=== PATIENT | female | born 1970 | race Caucasian/White ===

== ENCOUNTER → 2017-12-07 | Outpatient (CLI) | payer BC ==
--- NOTE | 2017-12-07 15:11 | P.STRESS ---
- Stress Test Note Stress Test Results/Findings: Exam Performed: stress test Exam Date: 12/07/17 Reason for Exam: ABNORMAL EKG Height: 5 ft 6 in Weight: 111.584 kg Protocol: JAILENE Stage: 3 Duration of Exercise: 7:00 Resting Heart Rate: 89 Resting Blood Pressure: 123/65 Maximum Achieved Heart Rate: 169 Maximum Achieved Blood Pressure: 159/50 85% PMHR: 148 100% PMHR: 174 METS: 8.5 Technologist Comment: Stress Test Results/Findings: This patient is being evaluated for symptoms of chest pain and abnormal EKG. Baseline EKG showed sinus rhythm with normal MD interval and QRS duration with the incomplete) branch block pattern. Blood pressure at rest is 123/65 with pulse rate of 89. Patient walked on the Jailene protocol for 7 minutes achieving a maximum rate of 169 with a blood pressure 115/50. EKGs taken during and after exercise did not reveal any changes to suggest ischemia. Final impression: #1. Negative stress test #2. Patient did not express any chest pain #3. About average exercise capacity #4. No arrhythmias detected.
--- NOTE | 2017-12-07 15:33 | ECHOF ---
Referral Reason:R07.89 Other Chest pain MEASUREMENTS -------- HEIGHT: 165.1 cm WEIGHT: 109.8 kg BP: RVIDd: 2.7 cm (< 3.3) IVSd: 0.9 cm (0.6 - 1.1) LVIDd: 4.5 cm (3.9 - 5.3) LVPWd: 1.1 cm (0.6 - 1.1) IVSs: 1.3 cm LVIDs: 3.2 cm LVPWs: 1.3 cm LA Diam: 3.5 cm (2.7 - 3.8) LAESV Index (A-L): 22.40 ml/m Ao Diam: 2.8 cm (2.0 - 3.7) AV Cusp: 2.2 cm (1.5 - 2.6) LA Diam: 3.6 cm (2.7 - 3.8) MV EXCURSION: 18.395 mm (> 18.000) MV EF SLOPE: 62 mm/s (70 - 150) EPSS: 0.7 cm MV E Ascencion: 0.48 m/s MV DecT: 186 ms MV A Ascencion: 0.62 m/s MV E/A Ratio: 0.79 RAP: 5.00 mmHg RVSP: 22.12 mmHg FINDINGS -------- Sinus rhythm. This was a technically adequate study. LV size, wall thickness and systolic function are normal, with an EF greater than 55%. The left taylor tricular size is normal. Left ventricular wall thickness is normal. The right ventricle is normal in size. The left atrial size is normal. The right atrial size is normal. The aortic valve is trileaflet, and appears structurally normal. No aortic stenosis or regurgitation. Mild mitral annular calcification present. Mild mitral regurgitation is present. Mild tricuspid regurgitation present. There is no evidence of pulmonary hypertension. The right v entricular systolic pressure, as measured by Doppler, is 22.12mmHg. There is no pulmonic regurgitation present. The aortic root size is normal. There is no pericardial effusion. CONCLUSIONS -------- 1. LV size, wall thickness and systolic function are normal, with an EF greater than 55%. 2. The left ventricular size is normal. 3. Left ventricular wall thickness is normal. 4. The right ventricle is normal in size. 5. The left atrial size is normal. 6. The right atrial size is normal. 7. The aortic valve is trileaflet, and appears structurally normal. No aortic stenosis or regurgitati on. 8. Mild mitral annular calcification present. 9. Mild mitral regurgitation is present. 10. Mild tricuspid regurgitation present. 11. There is no evidence of pulmonary hypertension. 12. The right ventricular systolic pressure, as measured by Doppler, is 22.12mmHg. 13. There is no pulmonic regurgitation present. 14. The aortic root size is normal. 15. There is no pericardial effusion. WARP PLACER: Sruthi Blake RDCS
--- NOTE | 2017-12-08 16:35 | EST ---
Stress Test Results/Findings: Exam Performed: stress test Exam Date: 12/07/17 Reason for Exam: ABNORMAL EKG Height: 5 ft 6 in Weight: 111.584 kg Protocol: JAILENE Stage: 3 Duration of Exercise: 7:00 Resting Heart Rate: 89 Resting Blood Pressure: 123/65 Maximum Achieved Heart Rate: 169 Maximum Achieved Blood Pressure: 159/50 85% PMHR: 148 100% PMHR: 174 METS: 8.5 Technologist Comment: Stress Test Results/Findings: This patient is being evaluated for symptoms of chest pain and abnormal EKG. Baseline EKG showed sinus rhythm with normal OR interval and QRS duration with the incomplete) branch block pattern. Blood pressure at rest is 123/65 with pulse rate of 89. Patient walked on the Jailene protocol for 7 minutes achieving a maximum rate of 169 with a blood pressure 115/50. EKGs taken during and after exercise did not reveal any changes to suggest ischemia. Final impression: #1. Negative stress test #2. Patient did not express any chest pain #3. About average exercise capacity #4. No arrhythmias detected. MTDD
== END ==
LOC: RADNMMAIN 08:53
PROVIDERS: ATTEND Internal Medicine
DX: I08.1 Rheumatic disorders of both mitral and tricuspid valves (principal)
CPT/HCPCS: 93017; 93306

== ENCOUNTER 2020-08-26 20:38 | Emergency (ER) | payer BC, MEDICAID ==
--- NOTE | 2020-08-26 22:01 | XR ---
EXAMINATION TYPE: XR ankle complete RT DATE OF EXAM: 08/26/2020 COMPARISON: NONE HISTORY: Ankle pain TECHNIQUE: 3 views FINDINGS: There is nondisplaced oblique fracture distal shaft of the fibula at the ankle joint. There is no dislocation. There is soft tissue swelling around the ankle. Ankle mortise is anatomic. IMPRESSION: Acute fracture distal fibula without significant displacement.
--- NOTE | 2020-08-26 22:26 | ED ---
Lower Extremity Injury HPI - General Chief Complaint: Extremity Injury, Lower Stated Complaint: Ankle injury,Fall Time Seen by Provider: 08/26/20 21:26 Source: patient Mode of arrival: ambulatory - Related Data Allergies Allergy/AdvReac Type Severity Reaction Status Date / Time No Known Allergies Allergy Verified 08/26/20 21:03 Review of Systems ROS Statement: Those systems with pertinent positive or pertinent negative responses have been documented in the HPI. ROS Other: All systems not noted in ROS Statement are negative. Past Medical History Past Medical History: No Reported History History of Any Multi-Drug Resistant Organisms: None Reported Additional Past Surgical History / Comment(s): cyst removed on gabriella wrist. c- section Smoking Status: Former smoker Past Alcohol Use History: None Reported Past Drug Use History: None Reported Course Vital Signs 08/26/20 21:04 Temperature 98.7 F Pulse Rate 87 Respiratory 20 Rate O2 Sat by Pulse 99 Oximetry Disposition Clinical Impression: Ankle fracture, right, Fall Disposition: HOME SELF-CARE Condition: Good Instructions (If sedation given, give patient instructions): Ankle Fracture (E D) Is patient prescribed a controlled substance at d/c from ED?: No Referrals: Yoselin Yu MD [Primary Care Provider] - 1-2 days
[2020-08-26 22:34] VITALS: BP 135/82; PULSE 89; RESP 16; TEMP 97.5
== END 2020-08-26 22:32 | disposition home or self-care (01) ==
LOC: EC 20:38
DX: S82.434A Nondisplaced oblique fracture of shaft of right fibula, initial encounter for closed fracture (principal); X58.XXXA Exposure to other specified factors, initial encounter; Z87.891 Personal history of nicotine dependence
CPT/HCPCS: 99283

== ENCOUNTER → 2020-09-16 | Outpatient (CLI) | payer MEDICAID ==
[2020-09-16 09:20] LABS: Basophils % (A) 1 %; Eosinophils # (A) 0.2 k/uL (0-0.7); Eosinophils % (A) 4 %; HCT 39.2 % (34.0-46.0); HGB 12.8 gm/dL (11.4-16.0); Lymphocytes # (A) 1.8 k/uL (1.0-4.8); Lymphocytes % (A) 28 %; MCH 28.6 pg (25.0-35.0); MCHC 32.7 g/dL (31.0-37.0); MCV 87.5 fL (80.0-100.0); Mean Platelet Volume 7.7; Monocytes # (A) 0.4 k/uL (0-1.0); Monocytes % (A) 6 %; Neutrophils # (A) 3.8 k/uL (1.3-7.7); Neutrophils % (A) 60 %; Platelet Count 315 k/uL (150-450); RBC 4.48 m/uL (3.80-5.40); RDW 13.2 % (11.5-15.5); WBC 6.4 k/uL (3.8-10.6)
[2020-09-16 09:43] LABS: African American GFR (CKD) >90 (>60 ml/min/1.73 sqM); Anion Gap 9 mmol/L; Blood Urea Nitrogen 14 mg/dL (7-17); Calcium 9.4 mg/dL (8.4-10.2); Carbon Dioxide 27 mmol/L (22-30); Chloride 105 mmol/L (98-107); Glucose 103 mg/dL (74-99); Non-African American GFR(CKD) 82 (>60 ml/min/1.73 sqM); Potassium 4.4 mmol/L (3.5-5.1); Sodium 141 mmol/L (137-145)
== END | disposition home or self-care (01) ==
LOC: LABPAT 08:38
PROVIDERS: ATTEND Orthopaedic Surgery
DX: Z01.818 Encounter for other preprocedural examination (principal); S82.61XD Displaced fracture of lateral malleolus of right fibula, subsequent encounter for closed fracture with routine healing; X58.XXXD Exposure to other specified factors, subsequent encounter
CPT/HCPCS: 36415; 80048; 85025; 93005

== ENCOUNTER → 2020-09-19 | Day surgery (SDC) | payer MEDICAID | END | disposition home or self-care (01) | CPT/HCPCS: 64445; 76942; 73610; 27792; C1713; J2250; J1100; J0690; J2405; J2001; J3010; J2795; J0330; J2704 ==

== ENCOUNTER → 2023-04-15 | Outpatient (CLI) | payer BC ==
--- NOTE | 2023-04-18 19:35 | MM ---
Reason for Exam: Screening (asymptomatic). Last mammogram was performed 7 year(s) and 3 month(s) ago. Patient History: Menarche at age 14. First Full-Term at age 25. Hormonal Contraceptives for 7 years from age 36 until age 43. Last menstrual period: 04/07/2023 Risk Values: Kelsie 5 year model risk: 0.9%. NCI Lifetime model risk: 7.9%. Prior Study Comparison: 12/31/2015 Bilateral Screening Mammogram, [facility]. Tissue Density: The breast tissue is heterogeneously dense. This may lower the sensitivity of mammography. Findings: Analyzed By CAD. Possible subtle distortion versus superimposition shadow outer aspect of the left cc view. Further evaluation is recommended. Otherwise, no significant change. Overall Assessment: Incomplete: need additional imaging evaluation, BI-RAD 0 Management: Special View Mammogram of the left breast. Diagnostic Breast Ultrasound of the left breast. Additional views to include spot 3-D CC, 3-D CC rolled, and 3-D ML views. Targeted left breast ultrasound if any persisting abnormality. [facility] will attempt to contact patient to return for supplemental views and ultrasound if indicated. Electronically signed and approved by: Christoph Williamson M.D. Radiologist
== END | disposition home or self-care (01) ==
LOC: RADMAMWWP 15:48
PROVIDERS: ATTEND Internal Medicine
DX: Z12.31 Encounter for screening mammogram for malignant neoplasm of breast (principal)
CPT/HCPCS: 77063; 77067

== ENCOUNTER → 2023-04-21 | Outpatient (CLI) | payer BC ==
--- NOTE | 2023-04-21 08:28 | MM ---
Reason for Exam: Additional evaluation requested from abnormal screening. Last screening mammogram was performed less than 1 month ago. Patient History: Menarche at age 14. First Full-Term at age 25. Hormonal Contraceptives for 7 years from age 36 until age 43. Risk Values: Kelsie 5 year model risk: 0.9%. NCI Lifetime model risk: 7.9%. Prior Study Comparison: 12/31/2015 Bilateral Screening Mammogram, [facility]. 04/15/2023 Bilateral MG 3D screening mammo w/cad, [facility]. Tissue Density: Left: The breast tissue is heterogeneously dense. This may lower the sensitivity of mammography. Findings: Analyzed By CAD. The questioned area of distortion upper outer left breast becomes less defined and appears to disperse on additional views. Precautionary six-month follow-up recommended given the appearance on the screening exam. Overall Assessment: Probably benign, BI-RAD 3 Management: Diagnostic Mammogram of the left breast in 6 months. . Results were given to the patient verbally at the time of exam. Patient should continue monthly self-breast exams. A clinical breast exam by your physician is recommended on an annual basis. This exam should not preclude additional follow-up of suspicious palpable abnormalities. Note on Kelsie scores and lifetime risk: 1. A Kelsie score greater than 3% is considered moderate risk. If this is the case, consider specialist referral to assess eligibility for a risk reducing agent. 2. If overall lifetime risk for the development of breast cancer is 20% or higher, the patient may qualify for future screening with alternating mammogram and breast MRI. Electronically signed and approved by: Christoph Williamson M.D. Radiologist
== END | disposition home or self-care (01) ==
LOC: RADMAMWWP 08:05
PROVIDERS: ATTEND Internal Medicine
DX: R92.332 Mammographic heterogeneous density, left breast (principal)
CPT/HCPCS: 77061; 77065

== ENCOUNTER 2023-04-29 09:40 | Emergency (ER) | payer BC ==
[2023-04-29 10:03] VITALS: BP 134/61; PULSE 74; RESP 18; TEMP 97.7
--- NOTE | 2023-04-29 10:03 | ED ---
General Adult HPI - General Chief complaint: Recheck/Abnormal Lab/Rx Stated complaint: Post Op Comp, L Wrist Time Seen by Provider: 04/29/23 09:45 Source: patient, RN notes reviewed, old records reviewed Mode of arrival: ambulatory Limitations: no limitations - History of Present Illness Initial comments: This is a 52-year-old female who presents to the emergency department complaining her incision from her wrist surgery on Tuesday opened up and it was bleeding a little this morning. Patient states the bleeding is stopped but she was unable to get a hold of the orthopedic surgeon so she came to the emergency department. Patient denies any fevers chills patient [place] any other complaints. - Related Data Home Medications Medication Instructions Recorded Confirmed Aspirin [Adult Low Dose Aspirin EC] 81 mg PO DAILY 09/17/20 09/17/20 Multivit with Calcium,Iron,Min 1 each PO DAILY 09/17/20 09/17/20 [Women's Multivitamin] Vitamin D3 (Unknown Dose) 1 dose PO DAILY 09/17/20 09/17/20 Previous Rx's Medication Instructions Recorded HYDROcodone/APAP 7.5-325MG [[place] 1 each PO Q6HR PRN #21 tab 09/19/20 7.5] cefaDROXiL [Duricef] 1 gm PO DAILY #5 tablet 09/19/20 Cephalexin [Keflex] 500 mg PO Q6HR #28 cap 04/29/23 Allergies Allergy/AdvReac Type Severity Reaction Status Date / Time No Known Allergies Allergy Verified 04/29/23 09:44 Review of Systems ROS Statement: Those systems with pertinent positive or pertinent negative responses have been documented in the HPI. ROS Other: All systems not noted in ROS Statement are negative. Past Medical History Past Medical History: No Reported History History of Any Multi-Drug Resistant Organisms: None Reported Additional Past Surgical History / Comment(s): cyst removed on gabriella wrist. c- section Past Psychological History: ADD/ADHD Smoking Status: Former smoker Past Alcohol Use History: None Reported Past Drug Use History: None Reported General Exam - General Exam Comments Initial Comments: GENERAL Patient is well-developed and well-nourished. Patient is in mild distress. EYES Patient's pupils are equal and round. Extraocular motion is intact SKIN Unremarkable NEURO The patient is alert and oriented -3 PYSCH Patient has normal interpersonal interactions. MUSCULOSKELETAL Left wrist has a small incision that is open but not bleeding and no signs of infection Limitations: no limitations Course Vital Signs 04/29/23 09:42 Temperature 97.7 F Pulse Rate 74 Respiratory 18 Rate Blood Pressure 134/61 O2 Sat by Pulse 99 Oximetry Medical Decision Making - Medical Decision Making Was pt. sent in by a medical professional or institution (, PA, HOCKEY INSTRUCTOR, urgent care, hospital, or prison...) When possible be specific @ -No Did you speak to anyone other than the patient for history (EMS, parent, family, police, friend...)? What history was obtained from this source @ -No Did you review nursing and triage notes (agree or disagree)? Why? @ -I reviewed and agree with nursing and triage notes Were old charts reviewed (outside hosp., previous admission, EMS record, old EKG, old radiological studies, urgent care reports/EKG's, prison records)? Report findings @ -No old charts were reviewed Differential Diagnosis (chest pain, altered mental status, abdominal pain women, abdominal pain men, vaginal bleeding, weakness, fever, dyspnea, syncope, headache, dizziness, GI bleed, back pain, seizure, CVA, palpatations, mental health, musculoskeletal)? @ -Differential Musculoskeletal Muscular strain, contusion, ligament sprain, dehiscence of wound, fracture, arthritis, septic arthritis, bursitis, cellulitis, muscle spasm, nerve compression, DVT, arterial occlusion, herpes zoster, electrolyte abnormality, tumor.... This is not meant to be in all inclusive list EKG interpreted by me (3pts min.). @ -As above X-rays interpreted by me (1pt min.). @ -None done CT interpreted by me (1pt min.). @ -None done U/S interpreted by me (1pt. min.). @ -None done What testing was considered but not performed or refused? (CT, X-rays, U/S, labs)? Why? @ -None What meds were considered but not given or refused? Why? @ -None Did you discuss the management of the patient with other professionals (professionals i.e. , PA, HOCKEY INSTRUCTOR, lab, RT, psych nurse, social and human services assistant, social services coordinator, teacher, telecommunications officer, case planner)? Give summary @ -I spoke to the physician dietitian assistant at [facility] they agreed just to have the wound covered use some Steri-Strips or other wound approximating bandage. And to put the patient on Keflex Was smoking cessation discussed for >3mins.? @ -No Was critical care preformed (if so, how long)? @ -No Were there social determinants of health that impacted care today? How? (Homelessness, low income, unemployed, alcoholism, drug addiction, transportation, low edu. Level, literacy, decrease access to med. care, fdc, rehab)? @ -No Was there de-escalation of care discussed even if they declined (Discuss DNR or withdrawal of care, Hospice)? DNR status @ -No What co-morbidities impacted this encounter? (DM, HTN, Smoking, COPD, CAD, Cancer, CVA, ARF, Chemo, Hep., AIDS, mental health diagnosis, sleep apnea, morbid obesity)? @ -None Was patient admitted / discharged? Hospital course, mention meds given and route, prescriptions, significant lab abnormalities, going to OR and other pertinent info. @ -Hospital course Undiagnosed new problem with uncertain prognosis? @ -No Drug Therapy requiring intensive monitoring for toxicity (Heparin, Nitro, Insulin, Cardizem)? @ -No Were any procedures done? @ -No Diagnosis/symptom? @ -Wound dehiscence Acute, or Chronic, or Acute on Chronic? @ -Acute Uncomplicated (without systemic symptoms) or Complicated (systemic symptoms)? @ -Uncomplicated Side effects of treatment? @ -No Exacerbation, Progression, or Severe Exacerbation? @ -No Poses a threat to life or bodily function? How? (Chest pain, [place], [place], pneumonia, PE, COPD, DKA, ARF, appy, cholecystitis, CVA, Diverticulitis, Homicidal, Suicidal, threat to staff... and all critical care pts) @ -No Disposition Clinical Impression: Wound dehiscence Disposition: HOME SELF-CARE Condition: Good Prescriptions: Cephalexin [Keflex] 500 mg PO Q6HR #28 cap Is patient prescribed a controlled substance at d/c from ED?: No Referrals: Yoselin Yu MD [Primary Care Provider] - 1-2 days Time of Disposition: 10:02
== END 2023-04-29 12:31 | disposition home or self-care (01) ==
LOC: EC 09:40
DX: T81.30XA Disruption of wound, unspecified, initial encounter (principal); Z87.891 Personal history of nicotine dependence
CPT/HCPCS: 99283

== ENCOUNTER → 2023-11-22 | Outpatient (CLI) | payer BC ==
--- NOTE | 2023-11-22 13:42 | MM ---
Reason for Exam: Follow-up at short interval from prior study. Last screening mammogram was performed 8 month(s) ago. Patient History: Menarche at age 14. First Full-Term at age 25. Perimenopausal. Hormonal Contraceptives for 7 years from age 36 until age 43. Risk Values: Kelsie 5 year model risk: 0.9%. NCI Lifetime model risk: 7.9%. Prior Study Comparison: 12/31/2015 Bilateral Screening Mammogram, [facility]. 04/15/2023 Bilateral MG 3D screening mammo w/cad, [facility]. 04/21/2023 Left MG 3D work up w/cad , [facility]. Tissue Density: Left: There are scattered areas of fibroglandular density. Findings: Analyzed By CAD. Area of concern/asymmetry compresses out on spot compression imaging. No suspicious masses, calcifications or distortions. Overall Assessment: Benign, BI-RAD 2 Management: Screening Mammogram of both breasts in 6 months. Results were given to the patient verbally at the time of exam. Patient should continue monthly self-breast exams. A clinical breast exam by your physician is recommended on an annual basis. This exam should not preclude additional follow-up of suspicious palpable abnormalities. Note on Kelsie scores and lifetime risk: 1. A Kelsie score greater than 3% is considered moderate risk. If this is the case, consider specialist referral to assess eligibility for a risk reducing agent. 2. If overall lifetime risk for the development of breast cancer is 20% or higher, the patient may qualify for future screening with alternating mammogram and breast MRI. Electronically signed and approved by: Kalin Whitaker DO
== END | disposition home or self-care (01) ==
LOC: RADMAMWWP 13:16
PROVIDERS: ATTEND Internal Medicine
DX: R92.8 Other abnormal and inconclusive findings on diagnostic imaging of breast
CPT/HCPCS: 77061; 77065